=== PATIENT | female | born 1935 | race Caucasian/White ===

== ENCOUNTER 2021-11-05 11:29 | Day surgery (SDC) | payer MEDICARE, BC, SELFPAY ==
--- NOTE | 2021-11-05 08:12 | OP_ITS ---
OPERATIVE PROCEDURE Kelman phacoemulsification, right eye, with a posterior chamber lens implant. PREOP DIAGNOSIS Nuclear sclerotic cortical cataract, right eye. ? POSTOP DIAGNOSIS Nuclear sclerotic cortical cataract, right eye. ?Repaired. ? 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 ?It is interfering with her ability to read, drive, and do her day-to-day activities. ?For that reason, she elected to proceed with surgical repair. ?I have explained the risks, benefits, alternative treatments to her including possible loss of the eye. ?She understands, accepts, and elects to proceed with surgical repair. ? OPERATIVE PROCEDURE The patient's right pupil was dilated with 1% Mydriacyl, 2.5% phenylephrine with topical Ocufen and Vigamox applied to the corneal surface in the PAR area. ?A [place] balloon was placed. ?Mannitol would have been given except because of the renal issues, we were unable to use Mannitol. ?She was brought to the main operating room where after pausing to identify the correct patient, the correct implant ZCBOO 21.5 diopters, and the correct eye, a retrobulbar block was performed under IV sedation. ?After a sterile prep and drape, a lid speculum was placed, and a paracentesis was created at 12 o'clock. ?The chamber was filled with OVD and entered temporally with a keratome. ?OVD was injected through the paracentesis. ?Air was injected. ?Trypan blue was utilized to stain the anterior lens capsule. ?A continuous tear capsulotomy was performed, and the nucleus was hydrodissected and emulsified in a chop technique in the capsular bag. ?Residual cortex was clean, and the capsule was clear. ?At this point, the capsule was expanded with OVD and ZCBOO 21.5 diopter posterior chamber lens implant injected into the capsular bag. ?Residual OVD was clean from behind the implant and throughout the anterior chamber. ?The incision was hydrated and noted to be leak free. Topical Alphagan, pilocarpine, and Vigamox were applied to the corneal surface, and the patient returned to the recovery in good condition, having tolerated the procedure well. CONDITION ON DISCHARGE Satisfactory. ?
[2021-11-05] MEDS: TETRACAINE 0.5% OPHTH 1 DROP EYE-RIGHT (12:15)
[2021-11-05] MEDS: KETOROLAC OPHTH 0.5% 1 DROP EYE-RIGHT ×3 (12:24→12:42)
[2021-11-05 12:26] VITALS: BMI 24.7
[2021-11-05 12:30] VITALS: BP 176/81; PULSE 74; RESP 20; TEMP 36.5
--- NOTE | 2021-11-05 13:01 | SUR.PREOP ---
jonny balloon applied at 12:57
[2021-11-05] MEDS: BALANCED SALT IRRIG SOLN 15 ML EYE-RIGHT (13:30)
[2021-11-05] MEDS: TETRACAINE 0.5% OPHTH 2 DROP EYE-RIGHT (13:30)
[2021-11-05] MEDS: lidocaine HCL 2 % MULTIDOSE 20 ML VIAL 5 ML INJECTION (13:35)
--- NOTE | 2021-11-05 13:54 | W.ANESCHARGE ---
Anesthesia Charges Start Date/Time Anesthesia Start Date: 11/05/21 Anesthesia Start Time: 13:10 Stop Date/Time Anesthesia Stop Date: 11/05/21 Anesthesia Stop Time: 13:49 Summary Emergency: No Extremes of Age: Over 70-CPT [id number]
--- NOTE | 2021-11-05 14:07 | W.ANESCHARGE ---
Anesthesia Charges Start Date/Time Anesthesia Start Date: 11/05/21 Anesthesia Start Time: 13:10 Stop Date/Time Anesthesia Stop Date: 11/05/21 Anesthesia Stop Time: 13:49 Summary Emergency: No Extremes of Age: Over 70-CPT [id number]
[2021-11-05 14:11] VITALS: BP 151/69; PULSE 68; RESP 20; TEMP 36.3
== END 2021-11-05 14:24 | disposition home or self-care (01) ==
PROVIDERS: Ophthalmology; PCP Family Medicine; Visit Provider Ophthalmology
PROC: (CPT 66984; principal; 2021-11-05 13:00)
DX: H25.11 Age-related nuclear cataract, right eye (principal)
CPT/HCPCS: 66984; 142; 99100; A9270; J2250; J3010; S0020; V2632